=== PATIENT | female | born 1970 ===

== ENCOUNTER → 2022-08-10 | Outpatient (CLI) | payer BC ==
[2022-08-10 15:11] VITALS: BP 141/92; PULSE 86; RESP 16; TEMP 97.6; BMI 48.9
--- NOTE | 2022-08-10 15:43 | P.BASOAP ---
Subjective Progress Note Date: 08/10/22 Principal diagnosis: Morbid obesity 51-year-old female known to our service. Patient had lap band placed around 2005 or 2006. Patient states in 2016 she believes she had her band empty because she was having episodes of intermittent vomiting. Since the band was emptied she has had no significant problems. She does have dysphagia quite rarely. She does feel mild discomfort at the port site on occasion. Her weight has gradually increased. The patient is not sure how much her weight was prior to her lap band placement nor she familiar with how low her weight became when she was utilized and the lap band. Today's weight is 303 and she thinks this is probably the heaviest that she has been. She has friends who have had the sleeve gastrectomy and done well. Her sister had the gastric bypass and has had some chronic issues with that. Patient is interested in possible band removal or conversion at this time to alternate bariatric procedure. Objective - Vital Signs Vital signs: Vital Signs Temp 97.6 F 08/10/22 15:08 Pulse 86 08/10/22 15:08 Resp 16 08/10/22 15:08 BP 141/92 08/10/22 15:08 Pulse Ox FiO2 Intake & Output 08/09/22 08/10/22 08/10/22 18:59 06:59 18:59 Weight 137.438 kg - Exam Abdomen: Soft, nontender, nondistended Assessment/Plan (1) Morbid obesity with BMI of 45.0-49.9, adult Narrative/Plan: 51-year-old female with morbid obesity and indwelling LAP-BAND. She and I and her discussed the options of band removal, band removal and conversion to gastric bypass, band removal and conversion to gastric sleeve. We also discussed the options of trying to use the band again. Patient states she eats very small amounts of food and we have decided adding fluid back to her band likely not result in sufficient weight loss. We discussed the potential issues related to sleeve conversion including chronic reflux, intermittent vomiting, and insufficient weight loss. Patient states she will consider gastric bypass conversion more at this time as I do believe this is the better operation for her currently. If gastric bypasses chosen we discussed that it may be better for her to have that surgery performed in [place] which is closer to her home. She will notify me of her decision. Plan: Date: 08/10/22 Initial Weight: 137.438 kg Initial BMI: 48.9 Current Weight: 137.438 kg Current BMI: 48.9 Type of Surgery: Adjustable Gastric Banding Total Volume in Band: Previous Volume: Volume Removed: Volume Added: Band Size:
== END ==
LOC: BARWHC3 14:46
PROVIDERS: ATTEND Surgery
DX: E66.01 Morbid (severe) obesity due to excess calories (principal); Z68.42 Body mass index [BMI] 45.0-49.9, adult
CPT/HCPCS: 99202